=== PATIENT | male | born 1960 | race Caucasian/White ===

== ENCOUNTER → 2018-03-07 | Outpatient (CLI) | payer OTHER ==
[~2018-03-07] MED LIST: BNC/20 PO; CIPR-255 PO; METR500T PO; SIMV20TA2 PO
--- NOTE | 2018-03-14 14:57 | CODING QUERY NO DIAGNOSIS ---
TREATMENT RENDERED WITHOUT A DIAGNOSIS To promote full compliance with coding requirements relating to patient care, physician participation is requested in all cases of mis director uncertainty. Please assist us with providing a diagnosis/symptom for the test(s) below: A diagnosis/symptom was not documented on your Order. A valid diagnosis/symptom is required to bill all insurances. Please remember that we are unable to code a diagnosis of rule out, probable, possible, questionable, or suspected. Tests that require a diagnosis: DOS: 03/07/18 (Attached order is missing diagnosis) * Cryptosporidium AG DIAGNOSIS: * Gardia AG DIAGNOSIS: * Ova & Parasite DIAGNOSIS: * Stool Culture DIAGNOSIS: * C Diff Toxin DIAGNOSIS: Provider Signature: Date: Thank you Vashti Lozano [facility] Information Management Once completed, please kindly fax back to [phone] For questions please call [phone]
== END | disposition home or self-care (01) ==
LOC: C.LAB 08:58
PROVIDERS: ATTEND Family Medicine
DX: R19.7 Diarrhea, unspecified (principal)